=== PATIENT | female | born 1940 | race Caucasian/White ===

== ENCOUNTER → 2020-04-30 12:05 | Outpatient (BNVA) | payer MEDICARE, OTHER, SELFPAY | PROVIDERS: Family Provider Family Medicine; Visit Provider Family Medicine | DX: Z85.3 Personal history of malignant neoplasm of breast (principal); E78.00 Pure hypercholesterolemia, unspecified; Z00.00 Encounter for general adult medical examination without abnormal findings; H61.23 Impacted cerumen, bilateral | CPT/HCPCS: 80053; 80061; 85025 ==

== ENCOUNTER 2020-06-25 14:07 | Outpatient (CLI) | payer MEDICARE, OTHER, SELFPAY ==
--- NOTE | 2020-06-25 14:16 | MM_ITS ---
WS: [id number] LEFT DIGITAL MAMMOGRAPHY WITH CAD CLINICAL INFORMATION: Z85.3 - Personal history of malignant neoplasm of breast COMPARISON: TECHNIQUE: 3 views of the left breast were obtained. FINDINGS: The left breast is composed of heterogeneous fibroglandular density tissue, which can limit the detec tion of small underlying mass lesions. Punctate calcifications. Vascular calcification. No suspicious focal mass, asymmetry, calcifications, or architectural distortion. No evidence of jagdeep gnancy. MM/[place] [id number] IMPRESSION: BI-RADS: 2-Benign FOLLOW UP: 1 Year Follow-up Recommend return to annual diagnostic mammography.
== END 2020-06-25 14:08 | disposition home or self-care (01) ==
LOC: RADSHAW 14:14
PROVIDERS: PCP Family Medicine; Visit Provider Family Medicine
DX: Z85.3 Personal history of malignant neoplasm of breast (principal)
CPT/HCPCS: 77065

== ENCOUNTER → 2021-04-30 12:42 | Outpatient (BNVA) | payer MEDICARE, OTHER, SELFPAY | PROVIDERS: PCP Family Medicine; Visit Provider Family Medicine | DX: Z00.00 Encounter for general adult medical examination without abnormal findings (principal); Z85.3 Personal history of malignant neoplasm of breast; E78.00 Pure hypercholesterolemia, unspecified | CPT/HCPCS: 80053; 80061; 85025 ==

== ENCOUNTER 2021-07-22 13:38 | Outpatient (CLI) | payer MEDICARE, OTHER, SELFPAY ==
--- NOTE | 2021-07-22 14:00 | MM_ITS ---
WS: [id number] RIGHT DIGITAL MAMMOGRAPHY WITH CAD CLINICAL INFORMATION: HX OF BREAST CA COMPARISON: June 25, 2020 TECHNIQUE: 3 views of the right breast were obtained. FINDINGS: The right breast is composed of heterogeneous fibroglandular density tissue, which can limit the dete ction of small underlying mass lesions. Punctate calcifications right breast. Vascular calcification right breast. No suspicious focal mass, asymmetry, calcifications, or architectural distortion. No evidence of jagdeep gnancy. MM/[place] [id number] BI-RADS: 2-Benign FOLLOW UP: 1 Year Follow-up Recommend return to annual diagnostic mammography.
== END 2021-07-22 13:39 | disposition home or self-care (01) ==
LOC: RADSHAW 13:47
PROVIDERS: PCP Family Medicine; Visit Provider Family Medicine
DX: Z85.3 Personal history of malignant neoplasm of breast (principal)
CPT/HCPCS: 77065

== ENCOUNTER → 2022-05-10 14:15 | Outpatient (BNVA) | payer MEDICARE, OTHER, SELFPAY | PROVIDERS: PCP Family Medicine; Visit Provider Family Medicine | DX: Z23 Encounter for immunization (principal); E78.00 Pure hypercholesterolemia, unspecified; Z85.3 Personal history of malignant neoplasm of breast | CPT/HCPCS: 80053; 80061; 85025 ==

== ENCOUNTER 2022-08-18 14:35 | Outpatient (CLI) | payer MEDICARE, OTHER, SELFPAY ==
--- NOTE | 2022-08-18 14:50 | MM_ITS ---
WS: [id number] RIGHT 3D TOMOSYNTHESIS DIGITAL MAMMOGRAPHY WITH CAD CLINICAL INFORMATION: HX BREAST CA;LT MST HISTORY: LEFT mastectomy COMPARISON: July 22, 2021 TECHNIQUE: 3 views of the right breast were obtained. FINDINGS: The right breast is composed of heterogeneous fibroglandular density tissue, which can limit the dete ction of small underlying mass lesions. Incidental punctate calcifications. Vascular calcification. No suspicious focal mass, asymmetry, calcifications, or architectural distortion. No evidence of jagdeep gnancy. MM/[place] [id number] IMPRESSION: BI-RADS: 2-Benign FOLLOW UP: 1 Year Follow-up Recommend return to annual diagnostic mammography.
== END 2022-08-18 14:36 | disposition home or self-care (01) ==
LOC: RAD 14:40
PROVIDERS: PCP Family Medicine; Visit Provider Family Medicine
DX: Z85.3 Personal history of malignant neoplasm of breast (principal); Z90.12 Acquired absence of left breast and nipple
CPT/HCPCS: 77061; G0279

== ENCOUNTER → 2023-05-10 12:21 | Outpatient (BNVA) | payer MEDICARE, OTHER, SELFPAY | PROVIDERS: PCP Family Medicine; Visit Provider Family Medicine | DX: Z85.3 Personal history of malignant neoplasm of breast (principal); E78.00 Pure hypercholesterolemia, unspecified | CPT/HCPCS: 80053; 80061; 85025 ==

== ENCOUNTER 2023-09-27 15:21 | Outpatient (CLI) | payer MEDICARE, OTHER, SELFPAY ==
--- NOTE | 2023-09-27 15:44 | MM_ITS ---
WS: [id number] RIGHT 3D TOMOSYNTHESIS DIGITAL MAMMOGRAPHY WITH CAD CLINICAL INFORMATION: HX OF BREAST CANCER HISTORY: History of LEFT mastectomy COMPARISON: 08/18/2022 TECHNIQUE: 3 views of the right breast were obtained. FINDINGS: The right breast is composed of extremely dense tissue, which can limit the detection of small underl francine mass lesions. Incidental punctate calcifications. Vascular calcifications. No suspicious focal mass, asymmetry, calcifications, or architectural distortion. No evidence of jagdeep gnancy. IMPRESSION: MM/[place] [id number] BI-RADS: 2-Benign FOLLOW UP: 1 Year Follow-up Recommend return to annual diagnostic mammography.
== END 2023-09-27 15:22 | disposition home or self-care (01) ==
LOC: RAD 15:22
PROVIDERS: PCP Family Medicine; Visit Provider Family Medicine
DX: Z85.3 Personal history of malignant neoplasm of breast (principal); R92.341 Mammographic extreme density, right breast; Z90.12 Acquired absence of left breast and nipple
CPT/HCPCS: 77061; G0279

== ENCOUNTER 2024-01-13 15:52 | Emergency (ER) | payer MEDICARE, OTHER, SELFPAY ==
[2024-01-13 15:53] VITALS: BMI 18.4
[2024-01-13 16:04] VITALS: BP 207/91; PULSE 82; RESP 16; TEMP 36.4; O2SAT 94
--- NOTE | 2024-01-13 16:07 | CTR_ITS ---
PROCEDURE INFORMATION: Exam: CT Cervical Spine Without Contrast Exam date and time: 01/13/2024 4:36 PM Age: 83 years old Clinical indication: Injury or trauma; Fall; Blunt trauma TECHNIQUE: Imaging protocol: Computed tomography of the cervical spine without contrast. Radiation optimization: All CT scans at this facility use at least one of these dose optimization techniques: automated exposure control; mA and/or kV adjustment per patient size (includes targeted exams where dose is matched to clinical indication); or iterative reconstruction. COMPARISON: CT head wo con* [id number] 01/13/2024 4:36 PM RADIATION DOSE METRICS: Total DLP (mGy-cm): 345.7 FINDINGS: Bones: There are degenerative changes throughout the visualized spine including marginal osteophyte formations, endplate degenerative changes, and facet arthropathy. Multilevel disc space narrowing. Grade 1 degenerative anterolisthesis of C4 on C5. Grade 1 degenerative anterolisthesis of C7 on T1. There are multilevel broad-based disc osteophyte complexes which indent the anterior thecal sac and result in varying degrees of bilateral neuroforamina narrowing. Lungs: Lung apices are normal. Pleural spaces: There is pleural thickening and/or scarring at the lung apices. Soft tissues: There is chronic appearing soft tissue thickening posterior to the dens with associated calcifications. CT/CT cervical spin wo con* [id number] IMPRESSION: There are degenerative changes as described above. No evidence for acute fracture.
--- NOTE | 2024-01-13 16:09 | CTR_ITS ---
PROCEDURE INFORMATION: Exam: CT Head Without Contrast Exam date and time: 01/13/2024 4:36 PM Age: 83 years old Clinical indication: Injury or trauma; Fall; Blunt trauma (contusions or hematomas); Without loss of consciousness; Injury details: Contusion to anterior forehead area TECHNIQUE: Imaging protocol: Computed tomography of the head without contrast. Radiation optimization: All CT scans at this facility use at least one of these dose optimization techniques: automated exposure control; mA and/or kV adjustment per patient size (includes targeted exams where dose is matched to clinical indication); or iterative reconstruction. COMPARISON: CT cervical spin wo con* [id number] 01/13/2024 4:36 PM RADIATION DOSE METRICS: Total DLP (mGy-cm): 1040.1 FINDINGS: Brain: There is diffuse cerebral atrophy present, consistent with this patient's age. Periventricular and subcortical white matter low densities are present which at this age likely represent microvascular ischemic change. No evidence for large acute ischemic infarction. Please note acute ischemia can be occult by head CT. No evidence for acute intracranial hemorrhage. Cerebral ventricles: No ventriculomegaly. Paranasal sinuses: Visualized sinuses are unremarkable. No fluid levels. Mastoid air cells: Visualized mastoid air cells are well aerated. Bones: Unremarkable. No acute fracture. Soft tissues: Midline frontal scalp hematoma. CT/CT head wo con* [id number] IMPRESSION: 1. There is a midline frontal scalp hematoma. 2. There are senescent changes of the brain as described above. No evidence for large acute ischemic infarction or acute intracranial injury.
[2024-01-13] MEDS: tetanus-dipt-pertussis 0.5 mL SDV IM (16:13)
[2024-01-13 16:39] LABS: Basophils # 0.1 10^3/uL (0.0-0.1); Basophils % 1.3 %; Eosinophils # 0.2 10^3/uL (0.0-0.8); Eosinophils % 2.6 %; Hematocrit 40.3 % (36-47); Lymphocytes # 0.9 10^3/uL (0.8-4.8); Lymphocytes % 13.2 %; Mean Corpuscular Hemoglobin 28.6 pg (27-33); Mean Corpuscular Volume 92.2 fl (85-98); Mean Platelet Volume 9.5 fL (7.4-10.4); Monocytes # 0.6 10^3/uL (0.2-0.9); Monocytes % 8.2 %; Neutrophils # 5.09 10^3/uL (1.8-7.7); Neutrophils % 74.6 %; Nucleated Red Blood Cells % 0 %; Platelet Count 282 10^3/cmm (157-399); Red Blood Count 4.37 10^6/uL (3.85-5.65); Red Cell Distribution Width 14.6 % (12.1-15.1); White Blood Count 6.83 10^3/uL (3.29-11.43)
[2024-01-13 16:55] LABS: Alanine Aminotransferase 26 U/L (0-33); Albumin Level 4.2 g/dL (3.5-5.2); Alkaline Phosphatase 75 U/L (35-105); Anion Gap 13.6 (5-19); Aspartate Amino Transferase 29 U/L (0-32); Blood Urea Nitrogen 44 mg/dL (8-23); Calcium 10.7 mg/dL (8.5-10.5); Carbon Dioxide 29 mmol/L (22-29); Chloride 102 mmol/L (98-107); Creatinine Clr Calc Pharmacy 27.2219; Globulin 3.7 g/dL (1.3-4.6); Glucose 92 mg/dL (65-115); Osmolality Calculated 301 mOsm/kg (285-295); Potassium 4.6 mmol/L (3.5-5.1); Sodium 140 mmol/L (136-145); Total Bilirubin 0.4 mg/dL (0.15-1.2); Total Protein 7.9 g/dL (6.6-8.7)
--- NOTE | 2024-01-13 17:05 | W.ED.WOUNDLC ---
HPI - Wound/Laceration General: Chief Complaint: Wound/Laceration Stated Complaint: LACERATION Time Seen by Provider: 01/13/24 15:54 Source: patient Mode of arrival: ambulatory History of Present Illness: 83-year-old female who fell while in the emergency room here with her she had gone to the restroom stumbled and fell in the restroom when she was sitting on the toilet and reaching for toilet paper as a result she hit her head she has a small laceration at the midline just at the hairline. She denies loss of consciousness denies any other injuries. Onset (ago): minute(s) Place: other (Hospital) Patient tetanus UTD: No Context: accidental Associated symptoms: Denies chills or fever(s) Review of Systems Const: Denies: fever(s) or chills Card: Denies: chest pain Resp: Denies: dyspnea GI: Denies: abdominal pain : Denies: dysuria, urinary frequency or urinary urgency Musc: Denies: neck pain or back pain Skin/Breast: Denies: rash PFSH ED PFSH: Medical History Cerumen debris on tympanic membrane of both ears History of breast cancer Hypercholesteremia Social History Smoking and tobacco/nicotine status: never used tobacco/nicotine Alcohol intake: never Substance/Drug Use: never Physical Exam Const: COMMON NORMALS: no acute distress GENERAL APPEARANCE: cooperative and comfortable ORIENTATION/CONSCIOUSNESS: Yes awake, Yes oriented to person, Yes oriented to place and Yes oriented to time HENMT: COMMON NORMALS: normocephalic and hearing grossly normal bilaterally HEAD & SCALP: normocephalic Resp: COMMON NORMALS: normal respiratory effort, No retractions, No use of accessory muscles and clear to auscultation bilaterally AUSCULTATION: clear to auscultation bilaterally Cardio: COMMON NORMALS: regular rate, regular rhythm and No murmurs present (Cardio) RATE: regular rate RHYTHM: regular rhythm GI: COMMON NORMALS: Soft to palpation and No hepatosplenomegaly present AUSCULTATION: Yes normoactive bowel sounds PALPATION: Yes Soft to palpation, No Tenderness to palpation present (GI), No Guarding due to palpation present (GI) and Yes No hepatosplenomegaly present Extremity: COMMON NORMALS: normal to inspection, capillary refill normal, no clubbing, cyanosis or edema, no calf tenderness and no pedal edema Neuro: SENSORIUM/ORIENTATION: Yes oriented to person, Yes oriented to place and Yes oriented to time Skin: COMMON NORMALS: no rashes or lesions noted GENERAL SKIN EXAM: no rashes or lesions noted Course Vital Signs: Vital signs: Vital Signs Temperature 97.6 F 01/13/24 16:04 Pulse Rate 82 01/13/24 16:04 Respiratory Rate 16 01/13/24 16:04 Blood Pressure 207/91 01/13/24 16:04 Pulse Oximetry 94 01/13/24 16:04 Oxygen Delivery Me thod Room Air 01/13/24 16:04 MDM - Wound/Laceration Medical Decision Making Labs and imaging reviewed. No acute findings. Abrasion on the forehead does not require suturing. Will discharge patient home apply topical antibiotic ointment tetanus updated. Lab Data 01/13/24 16:32 01/13/24 16:32 Radiology Impressions Cervical Spine CT 01/13/24 16:07 IMPRESSION: There are degenerative changes as described above. No evidence for acute fracture. Head CT 01/13/24 16:09 IMPRESSION: 1. There is a midline frontal scalp hematoma. 2. There are senescent changes of the brain as described above. No evidence for large acute ischemic infarction or acute intracranial injury. Laboratory Results WBC 6.83 10^3/uL (3.29-11.43) 01/13/24 16:32 RBC 4.37 10^6/uL (3.85-5.65) 01/13/24 16:32 Hgb 12.50 g/dL (11.27-16.99) 01/13/24 16:32 Hct 40.3 % (36-47) 01/13/24 16:32 MCV 92.2 fl (85-98) 01/13/24 16:32 MCH 28.6 pg (27-33) 01/13/24 16:32 MCHC 31.0 g/dL (30-55) 01/13/24 16:32 RDW 14.6 % (12.1-15.1) 01/13/24 16:32 Plt Count 282 10^3/cmm (157-399) 01/13/24 16:32 MPV 9.5 fL (7.4-10.4) 01/13/24 16:32 Neut % (Auto) 74.6 % 01/13/24 16:32 Lymph % (Auto) 13.2 % 01/13/24 16:32 Garrard % (Auto) 8.2 % 01/13/24 16:32 Eos % (Auto) 2.6 % 01/13/24 16:32 Baso % (Auto) 1.3 % 01/13/24 16:32 Neut # (Auto) 5.09 10^3/uL (1.8-7.7) 01/13/24 16:32 Lymph # (Auto) 0.9 10^3/uL (0.8-4.8) 01/13/24 16:32 Garrard # (Auto) 0.6 10^3/uL (0.2-0.9) 01/13/24 16:32 Eos # (Auto) 0.2 10^3/uL (0.0-0.8) 01/13/24 16:32 Baso # (Auto) 0.1 10^3/uL (0.0-0.1) 01/13/24 16:32 Nucleated RBC % (auto) 0 % 01/13/24 16:32 Nucleated RBCs # 0.0 /100WBC 01/13/24 16:32 Sodium 140 mmol/L (136-145) 01/13/24 16:32 Potassium 4.6 mmol/L (3.5-5.1) 01/13/24 16:32 Chloride 102 mmol/L (98-107) 01/13/24 16:32 Carbon Dioxide 29 mmol/L (22-29) 01/13/24 16:32 Anion Gap 13.6 (5-19) 01/13/24 16:32 BUN 44 mg/dL (8-23) H 01/13/24 16:32 Creatinine 1.2 mg/dL (0.5-0.9) H 01/13/24 16:32 GFR Calculation Not Reportable 01/13/24 16:32 Glucose 92 mg/dL (65-115) 01/13/24 16:32 Calculated Osmolality 301 mOsm/kg (285-295) H 01/13/24 16:32 Calcium 10.7 mg/dL (8.5-10.5) H 01/13/24 16:32 Total Bilirubin 0.4 mg/dL (0.15-1.2) 01/13/24 16:32 AST 29 U/L (0-32) 01/13/24 16:32 ALT 26 U/L (0-33) 01/13/24 16:32 Alkaline Phosphatase 75 U/L (35-105) 01/13/24 16:32 Total Protein 7.9 g/dL (6.6-8.7) 01/13/24 16:32 Albumin 4.2 g/dL (3.5-5.2) 01/13/24 16:32 Globulin 3.7 g/dL (1.3-4.6) 01/13/24 16:32 All radiology interpretation(s) finalized by discharge Discharge Plan Discharge Patient Disposition: Home Clinical Impression: Abrasion of scalp, Fall Condition: Stable Prescriptions: No Action (DME) masectomony bra See Rx Instructions .Route .MEDSUPPLY Qty: 2 0RF Rx Instructions: As directed (DME) mastectomy bra See Rx Instructions .Route .MEDSUPPLY Qty: 2 0RF Rx Instructions: As directed hydrocortisone 1 % cream 1 applic topical BID PRN (Reason: skin irritation) Qty: 28.35 0RF atorvastatin 20 mg tablet See Rx Instructions .ROUTE .COMPLEX Qty: 90 3RF Dose Instruction: TAKE ONE TABLET BY MOUTH DAILY Rx Instructions: TAKE ONE TABLET BY MOUTH DAILY alendronate 70 mg tablet See Rx Instructions .ROUTE .COMPLEX Qty: 13 1RF Dose Instruction: TAKE ONE TABLET BY MOUTH ONCE WEEKLY Rx Instructions: TAKE ONE TABLET BY MOUTH ONCE WEEKLY Discharge Orders: Discharge ED (Routine); Ordered 01/13/24 Ordered By: Diego Hawk Referrals: Amaya Jaeger MD [Primary Care Provider] - Discharge Diet: Usual diet Discharge Activity: Increase activity as tolerated Patient Instructions: Opioid Safety, Pain Management Activity Restrictions/Additional Instructions: Thank you for choosing [facility] for your healthcare needs today. It is very important that you follow up as instructed or that you return to the Emergency Department should you have concerns or if your condition changes or worsens in any way. You were seen in the emergency room after a fall. You have an abrasion to the forehead but the CT of your head and neck were normal. Recommend applying [id number] topical antibiotic ointment to the wound until healed. Your tetanus was updated. Coding Level of Care Code ED Lead Installer for Andreea Bello
[2024-01-13 17:53] VITALS: BP 188/91; PULSE 84; O2SAT 96
== END 2024-01-13 17:56 | disposition home or self-care (01) ==
PROVIDERS: Emergency Provider Family Medicine; PCP Family Medicine
DX: S00.01XA Abrasion of scalp, initial encounter (principal); W18.11XA Fall from or off toilet without subsequent striking against object, initial encounter; Z85.3 Personal history of malignant neoplasm of breast; Z23 Encounter for immunization
CPT/HCPCS: 36415; 70450; 72125; 80053; 85025; 90471; 90715; 99284

== ENCOUNTER → 2024-05-15 12:53 | Outpatient (BNVA) | payer MEDICARE, OTHER, SELFPAY | PROVIDERS: PCP Family Medicine; Visit Provider Family Medicine | DX: E78.00 Pure hypercholesterolemia, unspecified (principal) | CPT/HCPCS: 80053; 80061; 85025 ==

== ENCOUNTER 2024-10-02 11:18 | Outpatient (CLI) | payer MEDICARE, OTHER, SELFPAY ==
--- NOTE | 2024-10-02 11:30 | MM_ITS ---
WS: [id number] VIEWS: MLO, CC, and ML views RIGHT breast. 3D digital tomosynthesis is also included in this exam. Comparison made with prior exam of 04/16/2008, 04/21/2009, 04/22/2010, 04/23/2011, 04/25/2012, 05/30/2013, 06/04/2014, 02/16/2016, 05/18/2017, 06/06/2018, 06/08/2019, 06/25/2020, 07/22/2021, 08/18/2022, 09/27/2023.. Findings: The breasts are extremely dense, which lowers the sensitivity of mammography. No sign of suspicious mass, tumor calcification or architectural distortion. MM/MM diag RT tomosynthesis [id number] Impression: BI-RADS: 2 - Benign FOLLOW-UP: 1 Year Follow-up This mammogram was also analyzed by the Computer Aided Detection System R2 Imag e Spinning Machine Operator.
== END 2024-10-02 11:19 | disposition home or self-care (01) ==
PROVIDERS: PCP Family Medicine; Visit Provider Family Medicine
DX: Z85.3 Personal history of malignant neoplasm of breast (principal); R92.343 Mammographic extreme density, bilateral breasts
CPT/HCPCS: 77061; G0279

== ENCOUNTER → 2025-05-21 12:36 | Outpatient (BNVA) | payer MEDICARE, OTHER, SELFPAY | PROVIDERS: PCP Family Medicine; Visit Provider Family Medicine | DX: E78.00 Pure hypercholesterolemia, unspecified (principal) | CPT/HCPCS: 80053; 80061; 85025 ==

== ENCOUNTER 2025-06-26 16:19 | Outpatient (CLI) | payer MEDICARE, OTHER, SELFPAY ==
--- NOTE | 2025-06-26 16:27 | XRR_ITS ---
PROCEDURE INFORMATION: Exam: XR Right Shoulder Exam date and time: 06/26/2025 4:34 PM Age: 85 years old Clinical indication: Pain; Shoulder; Right; Additional info: Shoulder contusion TECHNIQUE: Imaging protocol: Radiologic exam of the right shoulder. Views: 2 or more views. COMPARISON: CT cervical spin wo con* [id number] 01/13/2024 4:36 PM FINDINGS: Bones/joints: No acute fractures identified. Degenerative changes about the glenohumeral and acromioclavicular joints. Humerus is high riding. Lungs: Incidentally imaged upper right hemithorax reveals a slightly rounded hyperdensity measuring 1.8 cm projecting over the region of the right lung apex. Soft tissues: Minimal soft tissue fullness over the deltoid region with a few soft tissue calcifications noted at the expected location of the distal cuff, probably chronic calcific tendinitis. XR/XR shoulder RT min 2V* [id number] IMPRESSION: 1. No acute fracture or dislocation. Probable chronic calcific tendinitis and chronic rotator cuff tear. 2. Questionable right upper lobe 1.8 cm rounded density or nodule. This also corresponds to the location of the costochondral junction of the 1st rib, therefore artifact could potentially produce this appearance as well. CT of the chest could provide more definitive characterization if needed.
== END 2025-06-26 16:20 | disposition home or self-care (01) ==
PROVIDERS: PCP Family Medicine; Visit Provider Registered Nurse Neonatal Intensive Care
DX: S40.019A Contusion of unspecified shoulder, initial encounter (principal); X58.XXXA Exposure to other specified factors, initial encounter; M19.011 Primary osteoarthritis, right shoulder
CPT/HCPCS: 73030